=== PATIENT | male | born 1995 | race Caucasian/White ===

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

== ENCOUNTER → 2017-02-02 | Outpatient (CLI) | payer BC ==
[~2017-02-02] MED LIST changes: +CEPH500C PO; -[UNRECOGNIZED DRUG - OTHER] PO
--- NOTE | 2017-02-02 07:46 | DIAGNOSTIC IMAGING REPORT ---
EXTREMITY NONVASCULAR LIMITED CLINICAL HISTORY: 21 years-old Male presenting with INGUINAL LYMPHADENOPATHY. TECHNIQUE: Real-time grayscale ultrasound imaging of the left inguinal region was performed for a focused evaluation for left inguinal lymph nodes. Color Doppler was also performed. COMPARISON: None. FINDINGS: Scattered prominent left inguinal lymph nodes, the largest measuring 3.1 x 0.6 x 1.5 cm. These maintain normal fatty estrella and do not demonstrate irregular cortical thickening. No associated inflammatory change. No focal fluid collection. IMPRESSION: 1. Prominent left inguinal lymph nodes with benign morphology. These may be reactive. Electronically signed by: Maurice Michelle M.D. 02/02/2017 7:45 AM Dictated Date/Time: 02/02/2017 7:44 AM
== END | disposition home or self-care (01) ==
LOC: C.ULTR 07:28
PROVIDERS: ATTEND Physician Assistant
DX: R59.0 Localized enlarged lymph nodes (principal)